=== PATIENT | male | born 1945 | race Caucasian/White ===

== ENCOUNTER → 2020-01-14 | Outpatient (CLI) | payer MEDICARE, OTHER ==
--- NOTE | 2020-01-14 11:55 | XR ---
EXAMINATION TYPE: XR KUB DATE OF EXAM: 01/14/2020 Comparison: None Clinical History: 74-year-old male N20.0 Kidney Stone Findings: 7 mm calcification left mid abdomen. 3 mm calcification right upper to mid abdomen. Nonobstructive mansi wel gas pattern. Supine imaging limited for assessment of free air. Moderate stool in the right side of the abdomen. Impression: Suspect a 7 mm nonobstructive left renal calculus and 3 mm on the right.
== END | disposition home or self-care (01) ==
LOC: RADXRMAIN 10:18
PROVIDERS: ATTEND Urology
DX: N20.0 Calculus of kidney (principal)
CPT/HCPCS: 74018

== ENCOUNTER 2022-04-14 12:49 | Observation (INO) | payer MEDICARE, OTHER ==
[2022-04-14] MEDS ORDERED: SODIUM CHLORIDE 0.9% 1,000 ML IV STA ×2 (16:07→18:45)
[2022-04-14] MEDS ORDERED: FAMOTIDINE 20 MG/2 ML VIAL IV STA (16:08)
[2022-04-14] MEDS ORDERED: diphenhydrAMINE 50 MG/ML 1 ML VIAL IVP STA (16:08)
[2022-04-14] MEDS ORDERED: methylPREDNISolone SOD SUCCI 125 MG/2 ML VIAL IV STA (16:08)
[2022-04-14 16:12] LABS: Basophils % (A) 0 %; Eosinophils # (A) 0.2 k/uL (0-0.7); Eosinophils % (A) 3 %; HCT 42.6 % (39.0-53.0); HGB 14.3 gm/dL (13.0-17.5); Lymphocytes # (A) 1.1 k/uL (1.0-4.8); Lymphocytes % (A) 20 %; MCH 31.3 pg (25.0-35.0); MCHC 33.6 g/dL (31.0-37.0); MCV 93.2 fL (80.0-100.0); Mean Platelet Volume 8.1; Monocytes # (A) 0.4 k/uL (0-1.0); Monocytes % (A) 7 %; Neutrophils # (A) 3.9 k/uL (1.3-7.7); Neutrophils % (A) 67 %; Platelet Count 194 k/uL (150-450); RBC 4.57 m/uL (4.30-5.90); RDW 12.6 % (11.5-15.5); WBC 5.8 k/uL (3.8-10.6)
--- NOTE | 2022-04-14 16:18 | ED ---
General Adult HPI - General Chief complaint: GI Bleed Stated complaint: urogenital Time Seen by Provider: 04/14/22 16:00 Source: patient, RN notes reviewed, old records reviewed Mode of arrival: ambulatory Limitations: no limitations - History of Present Illness Initial comments: Patient is a 76-year-old male with past medical history remarkable for prostate disorder, hyperlipidemia, eye disorders, who is not on blood thinners presents emergency Department with a one-day history of dark brown stools and concern for GI bleeding. He states he noticed dark red blood per rectum when using the restroom this morning at 4:30. States it was a skin the normal bowel movement. Soft stool. Noticed that the stool was coated in a darker brown color, states it was not black. States it was a dark brown/red. Denies any nausea, vomiting, hematemesis. Denies any history of GI bleeding. Does have a history of diverticulosis. Denies any chest pain, shortness of breath. Denies any weakness, lightheadedness, blurry vision. No history of GI bleeding in the past. Does endorse bilateral lower quadrant abdominal pressure and discomfort sensation. Denies any fevers, chills, or symptoms at this time. Has no urinary complaints. Presents for further evaluation at this time. - Related Data Home Medications Medication Instructions Recorded Confirmed Aspirin 81 mg PO DAILY 04/10/15 04/14/22 Terazosin [Hytrin] 5 mg PO HS 04/10/15 04/14/22 ALPRAZolam [Xanax] 0.5 mg PO HS PRN 04/14/22 04/14/22 Cabergoline 0.25 mg PO GRIMALDO 04/14/22 04/14/22 Simethicone [Gas-X] 125 mg PO QID PRN 04/14/22 04/14/22 Simvastatin [Zocor] 20 mg PO HS 04/14/22 04/14/22 Spasmaverine 60mg 60 mg PO DAILY 04/14/22 04/14/22 Timolol 0.5% Ophth Soln [Timoptic 1 drop BOTH EYES DAILY 04/14/22 04/14/22 0.5% Ophth Soln] tadalafiL [Cialis] 2.5 mg PO DAILY 04/14/22 04/14/22 Allergies Allergy/AdvReac Type Severity Reaction Status Date / Time Iodine and Iodide Containing Allergy hives, Verified 04/14/22 13:37 Produc tongue swelling Review of Systems ROS Statement: Those systems with pertinent positive or pertinent negative responses have been documented in the HPI. Review of Systems: CONST: Denies fever EYES: Denies blurry vision ENT: Denies nasal congestion C/V: Denies Chest pain RESP: Denies shortness of breath GI: Endorses abdominal discomfort. : Denies dysuria SKIN: Denies rash. MSK: Denies joint pain. NEURO: Denies headache ROS Other: All systems not noted in ROS Statement are negative. Past Medical History Past Medical History: Eye Disorder, Hyperlipidemia, Prostate Disorder Additional Past Medical History / Comment(s): occ heartburn, hiccups, hx kidney stones, glaucoma, pituitary tumor History of Any Multi-Drug Resistant Organisms: None Reported Past Surgical History: Hernia Repair, Orthopedic Surgery, Tonsillectomy Additional Past Surgical History / Comment(s): neck surgery, fx left tibia, surgery for kidney stone, vasectomy, deviated septum/polyps, umbilical hernia, lithotripsies, Past Anesthesia/Blood Transfusion Reactions: No Reported Reaction Past Psychological History: No Psychological Hx Reported Smoking Status: Never smoker Past Alcohol Use History: None Reported Past Drug Use History: None Reported - Past Family History Mother Family Medical History: No Reported History General Exam - General Exam Comments Initial Comments: General: Appears in no acute distress. HEAD: Normal with no signs of head trauma. EYES: PERRLA, EOMI, conjunctiva normal, no discharge. ENT: Hearing grossly intact, normal oropharynx. RESPIRATORY: Clear breath sounds bilaterally. No wheezes, rales, or rhonchi. C/V: Regular rate and rhythm. S1 and S2 auscultated, no edema, peripheral pulses 2+ and intact throughout ABD: Abdomen is soft, nondistended. Nontender to palpation. No guarding. No rebound tenderness. Rectal exam was performed. Dark red blood per rectum. No hemorrhoids observed. Good rectal tone. EXT: Normal range of motion, no obvious deformity SKIN: No rashes or lesions observed on exposed skin. NEURO: Alert and oriented x 4. Limitations: no limitations Course Vital Signs 04/14/22 13:33 Temperature 97.5 F L Pulse Rate 77 Respiratory 16 Rate Blood Pressure 176/78 O2 Sat by Pulse 98 Oximetry Medical Decision Making - Medical Decision Making Based on the patient's presentation and physical exam, I'm concerned for GI bleeding the patient. He does appear to have dark red blood per rectum, as on rectal exam is dark brown/red stool present. We will obtain abdominal laboratory studies, coags, lactic acid. Did recommend CT abdomen and pelvis as well as his lower abdominal discomfort. He was in agreement with this plan. He will be given 1 L fluid bolus. Vital signs within acceptable limits. Patient was in agreement this plan. Patient's laboratory studies is remarkable for hemoglobin of 14.3. Coags are within normal limits. Lactic acid is within normal limits. Occult blood is positive. CT abdomen and pelvis revealed demonstration of an active GI bleeding the proximal sigmoid colon. No diverticulitis. I spoke with Dr. Echeverria of , who agreed to evaluate the patient here for potential colonoscopy and intervention for the active GI bleed in the sigmoid colon. I discussed with the patient my desire to admit him to the hospital. They were in agreement this plan. He'll be made nothing by mouth. IV fluids are started. He'll be started on daily Protonix. He remains hemodynamically stable and asymptomatic. I spoke with the admitting physician, Dr. Christianson of [facility] who accepted the patient. Patient is admitted in stable condition. - Lab Data Result diagrams: 04/14/22 15:52 04/14/22 15:52 Lab Results 04/14/22 04/14/22 04/14/22 Range/Units 15:45 15:50 15:52 WBC 5.8 (3.8-10.6) k/uL RBC 4.57 (4.30-5.90) m/uL Hgb 14.3 (13.0-17.5) gm/dL Hct 42.6 (39.0-53.0) % MCV 93.2 (80.0-100.0) fL MCH 31.3 (25.0-35.0) pg MCHC 33.6 (31.0-37.0) g/dL RDW 12.6 (11.5-15.5) % Plt Count 194 (150-450) k/uL MPV 8.1 Neutrophils % 67 % Lymphocytes % 20 % Monocytes % 7 % Eosinophils % 3 % Basophils % 0 % Neutrophils # 3.9 (1.3-7.7) k/uL Lymphocytes # 1.1 (1.0-4.8) k/uL Monocytes # 0.4 (0-1.0) k/uL Eosinophils # 0.2 (0-0.7) k/uL Basophils # 0.0 (0-0.2) k/uL PT (9.0-12.0) sec INR (<1.2) APTT (22.0-30.0) sec Sodium (137-145) mmol/L Potassium (3.5-5.1) mmol/L Chloride (98-107) mmol/L Carbon Dioxide (22-30) mmol/L Anion Gap mmol/L BUN (9-20) mg/dL Creatinine (0.66-1.25) mg/dL Est GFR (CKD-EPI)AfAm (>60 ml/min/1.73 sqM) Est GFR (CKD-EPI)NonAf (>60 ml/min/1.73 sqM) Glucose (74-99) mg/dL Plasma Lactic Acid Narendra (0.7-2.0) mmol/L Calcium (8.4-10.2) mg/dL Total Bilirubin (0.2-1.3) mg/dL AST (17-59) U/L ALT (4-49) U/L Alkaline Phosphatase (38-126) U/L Total Protein (6.3-8.2) g/dL Albumin (3.5-5.0) g/dL Amylase (30-110) U/L Lipase (23-300) U/L Stool Occult Blood (Negative) Blood Type B Positive Blood Type Confirm B Positive Blood Type Recheck No Previous Record Bld Type Recheck Status CABO Indicated Antibody Screen NEGATIVE Spec Expiration Date 04/17/2022234904/14/22 04/14/22 04/14/22 Range/Units 15:52 15:52 16:08 WBC (3.8-10.6) k/uL RBC (4.30-5.90) m/uL Hgb (13.0-17.5) gm/dL Hct (39.0-53.0) % MCV (80.0-100.0) fL MCH (25.0-35.0) pg MCHC (31.0-37.0) g/dL RDW (11.5-15.5) % Plt Count (150-450) k/uL MPV Neutrophils % % Lymphocytes % % Monocytes % % Eosinophils % % Basophils % % Neutrophils # (1.3-7.7) k/uL Lymphocytes # (1.0-4.8) k/uL Monocytes # (0-1.0) k/uL Eosinophils # (0-0.7) k/uL Basophils # (0-0.2) k/uL PT (9.0-12.0) sec INR (<1.2) APTT 23.2 (22.0-30.0) sec Sodium 140 (137-145) mmol/L Potassium 4.4 (3.5-5.1) mmol/L Chloride 105 (98-107) mmol/L Carbon Dioxide 26 (22-30) mmol/L Anion Gap 9 mmol/L BUN 19 (9-20) mg/dL Creatinine 0.96 (0.66-1.25) mg/dL Est GFR (CKD-EPI)AfAm >90 (>60 ml/min/1.73 sqM) Est GFR (CKD-EPI)NonAf 78 (>60 ml/min/1.73 sqM) Glucose 99 (74-99) mg/dL Plasma Lactic Acid Narendra (0.7-2.0) mmol/L Calcium 9.5 (8.4-10.2) mg/dL Total Bilirubin 0.4 (0.2-1.3) mg/dL AST 22 (17-59) U/L ALT 22 (4-49) U/L Alkaline Phosphatase 63 (38-126) U/L Total Protein 6.6 (6.3-8.2) g/dL Albumin 4.5 (3.5-5.0) g/dL Amylase (30-110) U/L Lipase (23-300) U/L Stool Occult Blood Positive (Negative) Blood Type Blood Type Confirm Blood Type Recheck Bld Type Recheck Status Antibody Screen Spec Expiration Date 04/14/22 04/14/22 04/14/22 Range/Units 16:08 16:08 16:35 WBC (3.8-10.6) k/uL RBC (4.30-5.90) m/uL Hgb (13.0-17.5) gm/dL Hct (39.0-53.0) % MCV (80.0-100.0) fL MCH (25.0-35.0) pg MCHC (31.0-37.0) g/dL RDW (11.5-15.5) % Plt Count (150-450) k/uL MPV Neutrophils % % Lymphocytes % % Monocytes % % Eosinophils % % Basophils % % Neutrophils # (1.3-7.7) k/uL Lymphocytes # (1.0-4.8) k/uL Monocytes # (0-1.0) k/uL Eosinophils # (0-0.7) k/uL Basophils # (0-0.2) k/uL PT 10.9 (9.0-12.0) sec INR 1.0 (<1.2) APTT (22.0-30.0) sec Sodium (137-145) mmol/L Potassium (3.5-5.1) mmol/L Chloride (98-107) mmol/L Carbon Dioxide (22-30) mmol/L Anion Gap mmol/L BUN (9-20) mg/dL Creatinine (0.66-1.25) mg/dL Est GFR (CKD-EPI)AfAm (>60 ml/min/1.73 sqM) Est GFR (CKD-EPI)NonAf (>60 ml/min/1.73 sqM) Glucose (74-99) mg/dL Plasma Lactic Acid Narendra 0.8 (0.7-2.0) mmol/L Calcium (8.4-10.2) mg/dL Total Bilirubin (0.2-1.3) mg/dL AST (17-59) U/L ALT (4-49) U/L Alkaline Phosphatase (38-126) U/L Total Protein (6.3-8.2) g/dL Albumin (3.5-5.0) g/dL Amylase 95 (30-110) U/L Lipase 165 (23-300) U/L Stool Occult Blood (Negative) Blood Type Blood Type Confirm Blood Type Recheck Bld Type Recheck Status Antibody Screen Spec Expiration Date Disposition Clinical Impression: GI bleed Disposition: ADMITTED IP TO THIS [facility] Condition: Stable Referrals: Guru Acosta MD [Primary Care Provider] - 1-2 days Time of Disposition: 18:25
[2022-04-14 16:26] LABS: Prothrombin Time 10.9 sec (9.0-12.0)
[2022-04-14 16:34] LABS: Amylase 95 U/L (30-110); Lipase 165 U/L (23-300)
[2022-04-14 16:34] LABS: ALT 22 U/L (4-49); AST 22 U/L (17-59); African American GFR (CKD) >90 (>60 ml/min/1.73 sqM); Albumin 4.5 g/dL (3.5-5.0); Alkaline Phosphatase 63 U/L (38-126); Anion Gap 9 mmol/L; Blood Urea Nitrogen 19 mg/dL (9-20); Calcium 9.5 mg/dL (8.4-10.2); Carbon Dioxide 26 mmol/L (22-30); Chloride 105 mmol/L (98-107); Glucose 99 mg/dL (74-99); Non-African American GFR(CKD) 78 (>60 ml/min/1.73 sqM); Potassium 4.4 mmol/L (3.5-5.1); Sodium 140 mmol/L (137-145); Total Bilirubin 0.4 mg/dL (0.2-1.3); Total Protein 6.6 g/dL (6.3-8.2)
--- NOTE | 2022-04-14 17:28 | CT ---
EXAMINATION TYPE: CT angio abdomen pelvis DATE OF EXAM: 04/14/2022 COMPARISON: None HISTORY: GI bleed CT DLP: 1816.2 mGycm Automated exposure control for dose reduction was used. CONTRAST: Performed without and with IV Contrast, patient injected with 100 mL of Isovue 370. Images obtained from the diaphragm to the floor the pelvis without and with the IV contrast. There ar e delayed images also obtained. There are 3-D post processed images. Noncontrast images show 3 cm left renal cortical cyst with cortical thinning and 1 cm calculus. No hy dronephrosis. Ureters are not dilated. No retroperitoneal adenopathy. Liver and spleen are intact. The bile ducts are not dilated. Gallbladder appears normal. No pancreati c mass. The stomach is intact. Appendix is lateral and appears normal. Bladder distends smoothly. There is fat-containing small left inguinal hernia. No free fluid in the pelvis. There is some retained fecal material in the rectum. N o free air. No ascites. There are numerous large bowel diverticula. No diverticulitis. There is some distended small bowel in the upper abdomen measuring up to 3 cm. There is some contrast extravasation on the medial wall of the proximal sigmoid colon. This is seen b est on the delayed image 69. The lumbar vertebra appear intact. No compression fracture. Posterior elements are intact. There is v acuum disc at L5-S1. Lumbar vertebrae have normal alignment. The bony pelvis is intact. IMPRESSION: There is demonstration of active bleeding involving the proximal sigmoid colon. There is numerous sig moid diverticula. No diverticulitis. Normal appendix. Mild constipation.
[2022-04-14] MEDS ORDERED: PANTOPRAZOLE 40 MG/10 ML VIAL IVP STA (18:45)
[2022-04-14] MEDS ORDERED: ONDANSETRON 4 MG/2 ML VIAL IVP PRN (18:48)
[2022-04-14] MEDS ORDERED: NALOXONE 0.4 MG/ML 1 ML VIAL IV PRN (18:48)
[2022-04-14] MEDS ORDERED: SIMETHICONE 80 MG CHEWABLE PO PRN (19:15)
[2022-04-14] MEDS ORDERED: ALPRAZolam 0.5 MG TAB PO PRN (19:15)
[2022-04-14] MEDS: DOXAZOSIN 4 MG TAB PO SCH (20:12)
[2022-04-14 21:03] LABS: Basophils % (A) 0 %; Eosinophils % (A) 0 %; HCT 40.3 % (39.0-53.0); HGB 12.9 gm/dL (13.0-17.5); Lymphocytes # (A) 0.4 k/uL (1.0-4.8); Lymphocytes % (A) 6 %; MCH 29.9 pg (25.0-35.0); MCV 93.5 fL (80.0-100.0); Mean Platelet Volume 7.6; Monocytes # (A) 0.1 k/uL (0-1.0); Monocytes % (A) 1 %; Neutrophils # (A) 7.1 k/uL (1.3-7.7); Neutrophils % (A) 92 %; Platelet Count 188 k/uL (150-450); RBC 4.31 m/uL (4.30-5.90); RDW 12.2 % (11.5-15.5); WBC 7.8 k/uL (3.8-10.6)
[2022-04-14 21:19] LABS: Appearance,Urine Clear (Clear); Bilirubin,Urine Negative (Negative); Blood,Urine Negative (Negative); Color,Urine Light Yellow; Glucose,Urine (UA) Negative (Negative); Ketones,Urine Negative (Negative); Leukocyte Esterase,Urine Negative (Negative); Nitrite,Urine Negative (Negative); Protein,Urine Negative (Negative); Specific Gravity,Urine 1.039 (1.001-1.035); Urobilinogen,Urine <2.0 mg/dL (<2.0)
--- NOTE | 2022-04-15 01:50 | P.HPIM ---
History of Present Illness H&P Date: 04/14/22 The patient is a 76-year-old male with a PMH of hyperlipidemia and BPH who presents to the emergency room with complaints of black tarry stools. The patient reports that he initially noticed blood in the toilet bowl after a bowel movement at 4:30 AM this morning. He subsequently had 2 more bowel movements during the day at which were tarry black. Does report ongoing diffuse abdominal discomfort. He denied having any additional symptoms. denied expressing dizziness, fever, chills, nausea, vomiting. Reports that he is not currently taking blood thinners. No history of GI bleeding in the past. Reports that his last colonoscopy was 8 years ago which was completely unremarkable. Reports he has had 3 colonoscopies in total. Laboratory evaluation in the emergency room revealed a hemoglobin of 14.3 with fecal occult blood positive. Review of systems: Pertinent positives and negatives as discussed in HPI, a complete review of systems was performed and all other systems are negative. Physical examination: General: non toxic, no distress, appears at stated age, normal weight Derm: no unusual rashes/lesions, warm Head: atraumatic, normocephalic, symmetric Eyes: EOMI, no lid lag, anicteric sclera, pupils equal round reactive to light ENT: Nose and ears atraumatic Neck: No cervical lymphadenopathy, trachea midline, supple Mouth: no lip lesion, mucus membranes moist Cardiovascular: S1S2 reg, no murmur, positive dorsalis pedis pulse bilateral, no edema Lungs: CTA bilateral, no rhonchi, no rales, no accessory muscle use Abdominal: soft, nontender to palpation, no guarding Ext: muscle strength 5 out of 5 in all 4 extremities grossly, no gross muscle atrophy, no contractures, Neuro: CN II-XI grossly intact, no gross focal neuro deficits Psych: Alert, oriented, appropriate affect Assessment/plan Multiple melanotic stools, suspected for upper GI bleeding -GI consulted -Nothing by mouth for now -IV fluids -Protonix -Hold home ASA for now -Antiemetics Chronic conditions: Hyperlipidemia -Continue with home meds DVT prophylaxis -Heparin subcu The patient is admitted with an anticipated less than 2 midnight stay for evaluation of GIB CODE STATUS: Full Code Discussed with: Patient Anticipated discharge date: in am Anticipated discharge place: Home Past Medical History Past Medical History: Eye Disorder, Hyperlipidemia, Prostate Disorder Additional Past Medical History / Comment(s): occ heartburn, hiccups, hx kidney stones, glaucoma, pituitary tumor History of Any Multi-Drug Resistant Organisms: None Reported Past Surgical History: Hernia Repair, Orthopedic Surgery, Tonsillectomy Additional Past Surgical History / Comment(s): neck surgery, fx left tibia, surgery for kidney stone, vasectomy, deviated septum/polyps, umbilical hernia, lithotripsies, Past Anesthesia/Blood Transfusion Reactions: No Reported Reaction Past Psychological History: No Psychological Hx Reported Smoking Status: Never smoker Past Alcohol Use History: None Reported Past Drug Use History: None Reported - Past Family History Mother Family Medical History: Hypertension Medications and Allergies Home Medications Medication Instructions Recorded Confirmed Type Aspirin 81 mg PO DAILY 04/10/15 04/14/22 History Terazosin [Hytrin] 5 mg PO HS 04/10/15 04/14/22 History ALPRAZolam [Xanax] 0.5 mg PO HS PRN 04/14/22 04/14/22 History Cabergoline 0.25 mg PO GRIMALDO 04/14/22 04/14/22 History Simethicone [Gas-X] 125 mg PO QID PRN 04/14/22 04/14/22 History Simvastatin [Zocor] 20 mg PO HS 04/14/22 04/14/22 History Spasmaverine 60mg 60 mg PO DAILY 04/14/22 04/14/22 History Timolol 0.5% Ophth Soln [Timoptic 1 drop BOTH EYES DAILY 04/14/22 04/14/22 History 0.5% Ophth Soln] tadalafiL [Cialis] 2.5 mg PO DAILY 04/14/22 04/14/22 History Allergies Allergy/AdvReac Type Severity Reaction Status Date / Time Iodine and Iodide Containing Allergy hives, Verified 04/14/22 13:37 Produc tongue swelling Physical Exam Vitals: Vital Signs Temp Pulse Pulse Resp BP BP Pulse Ox 04/14/22 20:07 98.1 F 70 18 166/82 98 04/14/22 19:43 98.5 F 68 18 159/92 97 04/14/22 13:33 97.5 F L 77 16 176/78 98 Intake and Output 04/14/22 04/14/22 04/14/22 06:59 14:59 22:59 Other: Weight 73.936 kg Results CBC & Chem 7: 04/14/22 20:51 04/14/22 15:52 Labs: Abnormal Lab Results - Last 24 Hours (Table) 04/14/22 04/14/22 Range/Units 20:51 21:06 Hgb 12.9 L (13.0-17.5) gm/dL Lymphocytes # 0.4 L (1.0-4.8) k/uL Ur Specific [place] 1.039 H (1.001-1.035)
[2022-04-15 08:05] LABS: Basophils % (A) 0 %; Eosinophils % (A) 0 %; HCT 39.4 % (39.0-53.0); HGB 12.7 gm/dL (13.0-17.5); Lymphocytes # (A) 0.5 k/uL (1.0-4.8); Lymphocytes % (A) 6 %; MCH 30.1 pg (25.0-35.0); MCHC 32.2 g/dL (31.0-37.0); MCV 93.5 fL (80.0-100.0); Monocytes # (A) 0.2 k/uL (0-1.0); Monocytes % (A) 2 %; Neutrophils # (A) 7.3 k/uL (1.3-7.7); Neutrophils % (A) 91 %; Platelet Count 190 k/uL (150-450); RBC 4.22 m/uL (4.30-5.90); RDW 12.3 % (11.5-15.5)
[2022-04-15 08:19] LABS: African American GFR (CKD) >90 (>60 ml/min/1.73 sqM); Anion Gap 9 mmol/L; Blood Urea Nitrogen 21 mg/dL (9-20); Calcium 8.8 mg/dL (8.4-10.2); Carbon Dioxide 22 mmol/L (22-30); Chloride 108 mmol/L (98-107); Glucose 138 mg/dL (74-99); Non-African American GFR(CKD) 81 (>60 ml/min/1.73 sqM); Potassium 4.2 mmol/L (3.5-5.1); Sodium 139 mmol/L (137-145)
[2022-04-15] MEDS: PANTOPRAZOLE 40 MG/10 ML VIAL IVP SCH ×2 (08:35→20:27)
[2022-04-15] MEDS: TIMOLOL 0.5% OPHTH DROPS 5 ML BTL BOTH EYES SCH (08:35)
[2022-04-15] MEDS ORDERED: PANTOPRAZOLE 40 MG/10 ML VIAL IVP SCH (09:00)
[2022-04-15 11:43] LABS: Glucose,Whole Blood 105 mg/dL (70-110)
--- NOTE | 2022-04-15 11:58 | P.PN ---
Subjective Progress Note Date: 04/15/22 Principal diagnosis: GI bleed Hospital Course: 76-year-old male with history of diverticulosis, hyperlipidemia, and BPH presenting with melena. CTA abdomen and pelvis showed active bleeding involving the proximal sigmoid colon. There is numerous sigmoid diverticula. No diverticulitis. Given his symptoms with regards to melena, concern for upper GI bleed. Gastroenterology consulted. Subjective: Patient seen and examined at bedside. No acute events overnight. He denies having any bowel movement since coming to the hospital. He currently remains nothing by mouth. He denies any chest pain, shortness of breath, abdominal pain. Pertinent positives and negatives as discussed above, a complete review of systems was performed and all other systems are negative. Vitals Signs Reviewed. General: nontoxic, no distress, appears at stated age Derm: warm, dry Head: atraumatic, normocephalic, symmetric Eyes: EOMI, no lid lag, anicteric sclera Mouth: no lip lesion, mucus membranes moist Cardiovascular: S1S2 reg, no murmur Lungs: CTA bilateral, no rhonchi, no rales , no accessory muscle use Abdominal: soft, nontender to palpation, no guarding, no appreciable organomegaly Ext: no gross muscle atrophy, no edema, no contractures Neuro: CN II-XI grossly intact, no focal neuro deficits Psych: Alert, oriented, appropriate affect Assessment and Plan: Multiple melanotic stools, suspected upper GI bleeding Diverticulosis Diverticular bleed -Hemoglobin stable -Nothing by mouth -GI consult -IV fluids -Protonix twice a day -Holding aspirin -Antiemetics Chronic conditions: Dyslipidemia BPH -Continue home medications DVT ppx: Mechanical Code status: Full code Anticipated discharge place: Home Anticipated discharge time: 1 to 2 days Objective - Vital Signs Vital signs: Vital Signs Temp 98.6 F 04/15/22 08:00 Pulse 98 04/15/22 08:00 Resp 16 04/15/22 08:00 BP 160/76 04/15/22 08:00 Pulse Ox 96 04/15/22 08:00 FiO2 Intake & Output 04/14/22 04/15/22 04/15/22 18:59 06:59 18:59 Intake Total 390 Balance 390 Weight 73.936 kg 73.936 kg Intake: Intake, IV Titration 390 Amount Sodium Chloride 0.9% 1, 390 000 ml @ 130 mls/hr IV . [id number] STA Rx#:[id number] Other: Voiding Method Toilet # Voids 2 - Labs CBC & Chem 7: 04/15/22 07:39 04/15/22 07:39 Labs: Abnormal Lab Results - Last 24 Hours (Table) 04/14/22 04/14/22 04/15/22 Range/Units 20:51 21:06 07:39 RBC 4.22 L (4.30-5.90) m/uL Hgb 12.9 L 12.7 L (13.0-17.5) gm/dL Lymphocytes # 0.4 L 0.5 L (1.0-4.8) k/uL Chloride (98-107) mmol/L BUN (9-20) mg/dL Glucose (74-99) mg/dL Ur Specific [place] 1.039 H (1.001-1.035) 04/15/22 Range/Units 07:39 RBC (4.30-5.90) m/uL Hgb (13.0-17.5) gm/dL Lymphocytes # (1.0-4.8) k/uL Chloride 108 H (98-107) mmol/L BUN 21 H (9-20) mg/dL Glucose 138 H (74-99) mg/dL Ur Specific [place] (1.001-1.035)
[2022-04-15] MEDS ORDERED: PEG 3350 (236 GM/BTL) + LYTES 4,000 ML BOTTLE PO ONE (15:00)
--- NOTE | 2022-04-15 15:02 | P.CONS ---
History of Present Illness - Reason for Consult Consult date: 04/15/22 GI bleed Requesting physician: Geronimo Luo - Chief Complaint Bloody stool - History of Present Illness This 76-year-old male who presented to the emergency department with concerns for her GI bleed. Past medical history of hyperlipidemia and BPH. He states Tuesday going into Tuesday noteman he had a 3 bloody bowel movements. He states stool was black but once it hit the water it turned red. Gastroenterology was consulted for GI bleed. He denies any previous history of GI bleed. Denies any associated abdominal pain, nausea or vomiting. Denies any previous history of ulcers last colonoscopy was in [address] Echeverria which she states was normal. He denies any anticoagulation a regular NSAID use. Labs: WBC 8.0 hemoglobin 12.7 hematocrit 39 platelet count 190,000 sodium 139 potassium 4.2 BUN [address] angiogram abdominal pelvis reports distended small bowel could relate to ileus. Do not suspect mechanical obstruction. There is demonstration of active bleeding involving the proximal sigmoid colon. Numerous sigmoid diverticula. No diverticulitis. Review of Systems REVIEW OF SYSTEMS: CARDIOPULMONARY: No chest pain or shortness of breath. Gastrointestinal: No abdominal pain. No nausea or vomiting. No hematemesis, coffee-ground emesis. Melena. GENITOURINARY: No dysuria or hematuria. MUSCULOSKELETAL: Reports normal range of motion. SKIN: No rashes. No jaundice. ENDOCRINE: No chills, fevers. No excessive weight gain or loss. No polydipsia or polyuria. PSYCHIATRIC: Unremarkable. NEUROLOGY: No change in mental status. Denies dizziness, headache. ENT: Vision unremarkable. CONSTITUTIONAL: No recent weight loss. No fever, chills, night sweats. Past Medical History Past Medical History: Eye Disorder, Hyperlipidemia, Prostate Disorder Additional Past Medical History / Comment(s): occ heartburn, hiccups, hx kidney stones, glaucoma, pituitary tumor History of Any Multi-Drug Resistant Organisms: None Reported Past Surgical History: Hernia Repair, Orthopedic Surgery, Tonsillectomy Additional Past Surgical History / Comment(s): neck surgery, fx left tibia, surgery for kidney stone, vasectomy, deviated septum/polyps, umbilical hernia, lithotripsies, Past Anesthesia/Blood Transfusion Reactions: No Reported Reaction Past Psychological History: No Psychological Hx Reported Smoking Status: Never smoker Past Alcohol Use History: None Reported Past Drug Use History: None Reported - Past Family History Mother Family Medical History: Hypertension Medications and Allergies Home Medications Medication Instructions Recorded Confirmed Type Aspirin 81 mg PO DAILY 04/10/15 04/14/22 History Terazosin [Hytrin] 5 mg PO HS 04/10/15 04/14/22 History ALPRAZolam [Xanax] 0.5 mg PO HS PRN 04/14/22 04/14/22 History Cabergoline 0.25 mg PO GRIMALDO 04/14/22 04/14/22 History Simethicone [Gas-X] 125 mg PO QID PRN 04/14/22 04/14/22 History Simvastatin [Zocor] 20 mg PO HS 04/14/22 04/14/22 History Spasmaverine 60mg 60 mg PO DAILY 04/14/22 04/14/22 History Timolol 0.5% Ophth Soln [Timoptic 1 drop BOTH EYES DAILY 04/14/22 04/14/22 History 0.5% Ophth Soln] tadalafiL [Cialis] 2.5 mg PO DAILY 04/14/22 04/14/22 History Allergies Allergy/AdvReac Type Severity Reaction Status Date / Time Iodine and Iodide Containing Allergy hives, Verified 04/14/22 13:37 Produc tongue swelling Physical Exam Vitals: Vital Signs Temp Pulse Pulse Resp BP BP Pulse Ox 04/15/22 08:00 98.6 F 98 16 160/76 96 04/15/22 04:47 97.8 F 87 16 152/75 96 04/15/22 00:59 97.8 F 89 17 141/77 96 04/14/22 20:07 98.1 F 70 18 166/82 98 04/14/22 19:43 98.5 F 68 18 159/92 97 04/14/22 13:33 97.5 F L 77 16 176/78 98 Intake and Output 04/14/22 04/15/22 04/15/22 22:59 06:59 14:59 Intake Total 390 Balance 390 Intake: Intake, IV Titration 390 Amount Sodium Chloride 0.9% 1, 390 000 ml @ 130 mls/hr IV . Q7H42M STA Rx#:[id number] Other: Voiding Method Toilet # Voids 2 Weight 73.936 kg General appearance: The patient is alert, oriented, appears in no acute distress. HET: Head is normocephalic and atraumatic. Conjunctiva pink. Sclera anicteric. Neck: Supple without lymphadenopathy. Trachea midline. Heart: S1 S2. Regular rate and rhythm. Lungs: Clear to auscultation. Abdomen: Soft, nontender, nondistended with bowel sounds. No guarding or rigidity. Skin: No rashes. No jaundice. Extremities: Normal skin color and turgor. No pedal edema. Neurological: No focal deficits. Alert and oriented x3. Results CBC & Chem 7: 04/15/22 07:39 04/15/22 07:39 Labs: Abnormal Lab Results - Last 24 Hours (Table) 04/14/22 04/14/22 04/15/22 Range/Units 20:51 21:06 07:39 RBC 4.22 L (4.30-5.90) m/uL Hgb 12.9 L 12.7 L (13.0-17.5) gm/dL Lymphocytes # 0.4 L 0.5 L (1.0-4.8) k/uL Chloride (98-107) mmol/L BUN (9-20) mg/dL Glucose (74-99) mg/dL Ur Specific [place] 1.039 H (1.001-1.035) 04/15/22 Range/Units 07:39 RBC (4.30-5.90) m/uL Hgb (13.0-17.5) gm/dL Lymphocytes # (1.0-4.8) k/uL Chloride 108 H (98-107) mmol/L BUN 21 H (9-20) mg/dL Glucose 138 H (74-99) mg/dL Ur Specific [place] (1.001-1.035) Comments: CT angiogram abdomen pelvis reports distended small bowel could relate to ileus. Do not suspect mechanical obstruction. There is demonstration of active bleeding involving the proximal sigmoid colon. Numerous sigmoid diverticula. No diverticulitis. Assessment and Plan (1) GI bleed Narrative/Plan: 76-year-old presented to the emergency department with 3 episodes of black stool that turn the toilet water bright red. Patient reports 3 bloody stools yesterday and one today. No associated abdominal pain, nausea or vomiting. No previous history of GI bleed. No history of peptic ulcer disease. Denies any anticoagulation or NSAID use. Takes low-dose daily aspirin. A CT of the abdomen and pelvis showing active bleed in the proximal sigmoid colon and diverticulosis. Last colonoscopy 2013, patient reports normal. Likely were dealing with a possible diverticular bleed however patient had elevated BUN and black stool so we will proceed with upper and lower endoscopy. Current Visit: Yes Status: Acute Code(s): K92.2 - GASTROINTESTINAL HEMORRHAGE, UNSPECIFIED SNOMED Code(s): 34571893 Plan: 1. Continue symptomatic supportive care 2. Clear liquid diet 3. Daily CBC, transfuse hemoglobin less than 7 4. Nothing by mouth after midnight 5. Bowel prep this evening 6. Plan for EGD colonoscopy tomorrow. Procedure discussed with patient including risks and benefits, patient seemingly understands and agrees to proceed. Thank you for this consultation, we will continue to follow. Dr. Xavier Echeverria I agree with the dictator's note, documented as a scribe by Sonali Calhoun.
[2022-04-15 16:31] LABS: Glucose,Whole Blood 91 mg/dL (70-110)
[2022-04-15 20:23] LABS: Glucose,Whole Blood 95 mg/dL (70-110)
[2022-04-15] MEDS: ATORVASTATIN 10 MG TAB PO SCH (20:27)
[2022-04-15] MEDS: DOXAZOSIN 4 MG TAB PO SCH (20:28)
[2022-04-16 08:19] LABS: HCT 32.8 % (39.0-53.0); HGB 11.1 gm/dL (13.0-17.5); MCH 31.1 pg (25.0-35.0); MCV 91.5 fL (80.0-100.0); Mean Platelet Volume 9.5; Platelet Count 183 k/uL (150-450); RBC 3.58 m/uL (4.30-5.90); RDW 12.6 % (11.5-15.5); WBC 8.3 k/uL (3.8-10.6)
[2022-04-16] MEDS: PANTOPRAZOLE 40 MG/10 ML VIAL IVP SCH ×2 (08:48→20:02)
[2022-04-16] MEDS: TIMOLOL 0.5% OPHTH DROPS 5 ML BTL BOTH EYES SCH (08:48)
--- NOTE | 2022-04-16 10:34 | P.PN ---
Subjective Progress Note Date: 04/16/22 Principal diagnosis: GI bleed Hospital Course: 76-year-old male with history of diverticulosis, hyperlipidemia, and BPH presenting with melena. CTA abdomen and pelvis showed active bleeding involving the proximal sigmoid colon. There is numerous sigmoid diverticula. No diverticulitis. Given his symptoms with regards to melena, concern for upper GI bleed. Gastroenterology consulted. EGD and colonoscopy pending. Subjective: Patient seen and examined at bedside. No acute events overnight. He had melenonic stools x2 and some hematochezia during prep. He currently remains nothing by mouth. He denies any chest pain, shortness of breath, abdominal pain. Pertinent positives and negatives as discussed above, a complete review of systems was performed and all other systems are negative. Vitals Signs Reviewed. General: nontoxic, no distress, appears at stated age Derm: warm, dry Head: atraumatic, normocephalic, symmetric Eyes: EOMI, no lid lag, anicteric sclera Mouth: no lip lesion, mucus membranes moist Cardiovascular: S1S2 reg, no murmur Lungs: CTA bilateral, no rhonchi, no rales , no accessory muscle use Abdominal: soft, nontender to palpation, no guarding, no appreciable organomegaly Ext: no gross muscle atrophy, no edema, no contractures Neuro: CN II-XI grossly intact, no focal neuro deficits Psych: Alert, oriented, appropriate affect Assessment and Plan: Multiple melanotic stools, suspected upper GI bleeding Diverticulosis Diverticular bleed -Hemoglobin slowly downtrending -Nothing by mouth -GI consult - pending EGD and colonoscopy -IV fluids -Protonix twice a day -Holding aspirin -Antiemetics Chronic conditions: Dyslipidemia BPH -Continue home medications DVT ppx: Mechanical Code status: Full code Anticipated discharge place: Home Anticipated discharge time: 1 to 2 days Objective - Vital Signs Vital signs: Vital Signs Temp 98.2 F 04/15/22 20:00 Pulse 69 04/16/22 04:00 Resp 18 04/16/22 04:00 BP 138/75 04/16/22 04:00 Pulse Ox 96 04/16/22 04:00 FiO2 Intake & Output 04/15/22 04/16/22 04/16/22 18:59 06:59 18:59 Intake Total 0 2120 Balance 0 2120 Intake: Oral 0 2120 Other: Voiding Method Toilet Toilet # Voids 2 2 # Bowel Movements 1 4 - Labs CBC & Chem 7: 04/16/22 08:02 04/15/22 07:39 Labs: Abnormal Lab Results - Last 24 Hours (Table) 04/16/22 Range/Units 08:02 RBC 3.58 L (4.30-5.90) m/uL Hgb 11.1 L (13.0-17.5) gm/dL Hct 32.8 L (39.0-53.0) %
[2022-04-16 11:45] LABS: Glucose,Whole Blood 99 mg/dL (70-110)
[2022-04-16] MEDS ORDERED: SODIUM CHLORIDE 0.9% 500 ML 500 ML IV ONE (14:41)
[2022-04-16] MEDS ORDERED: LIDOCAINE 2% INJ 20 MG/ML (2 ML VIAL) ONE (14:49)
[2022-04-16] MEDS ORDERED: PROPOFOL 10 MG/ML 20 ML VIAL IV ONE (14:49)
--- NOTE | 2022-04-16 15:23 | P.PCN ---
Date of Procedure: 04/16/22 Procedure(s) Performed: Brief history: Patient is a pleasant 76-year-old white male scheduled for an upper endoscopy as well as colonoscopy as a part of evaluation of acute GI bleed. Patient was admitted hospital with multiple episodes of bright red blood per rectum. Initial hemoglobin was 14 and subsequently dropped to 11 g/dL. Procedure performed: Esophagogastroduodenoscopy Colonoscopy Preoperative diagnosis: Acute GI bleed Anesthesia: [facility] [place] Procedure: After informed consent was obtained from the patient was brought into the endoscopy unit and IV sedation was administered by anesthesia under continuous monitoring. Initially upper endoscopy was done. The Olympus GF 160 video endoscope was inserted inserted into the mouth and esophagus intubated without any difficulty and was gradually advanced into the stomach and duodenum and carefully examined. The bulb and second part of the duodenum appeared normal. The scope was then withdrawn into the stomach adequately insufflated with air and upon careful examination the antrum and body, cardia and fundus appeared normal. The scope was then withdrawn into the esophagus. The GE junction was located at 40 cm to the incisors. Small sliding Hiatal hernia noted. It appeared regular with no erythema erosions or ulcerations. Rest of the esophagus appeared normal. Patient tolerated the procedure well. At this time the patient continued to remain sedation. Initial digital rectal examination was normal. Olympus CF 160 video colonoscope was then inserted into the rectum and gradually advanced to the cecum without any difficulty. Careful examination was performed as the scope was gradually being withdrawn. The prep was fair. The cecum, ascending colon, transverse colon, descending colon, appeared normal. There was some old blood noted in the left colon. Moderate sigmoid diverticula seen. No active bleeding identified. Mucosa of the sigmoid colon and rectum appeared normal. Retroflexion was performed in the rectum and no lesions were noted. Patient tolerated the procedure well. Impression: 1. Upper endoscopy revealed small hiatal hernia but no active evidence of active upper GI bleed 2. Colonoscopy revealed left-sided diverticulosis with some old blood noted in the left colon but no evidence of active bleeding Recommendations: Findings of this examination were discussed with the patient. He'll be started on a full liquid diet today. Monitor CBC daily. If the hemoglobin remains stable and no further bleeding can be discharged home tomorrow.
[2022-04-16 16:43] LABS: Glucose,Whole Blood 87 mg/dL (70-110)
[2022-04-16] MEDS: DOXAZOSIN 4 MG TAB PO SCH (20:01)
[2022-04-16] MEDS: ATORVASTATIN 10 MG TAB PO SCH (20:01)
[2022-04-16 20:06] LABS: Glucose,Whole Blood 112 mg/dL (70-110)
[2022-04-17 07:09] LABS: HCT 35.9 % (39.0-53.0); HGB 11.9 gm/dL (13.0-17.5); MCH 30.4 pg (25.0-35.0); MCHC 33.3 g/dL (31.0-37.0); MCV 91.4 fL (80.0-100.0); Mean Platelet Volume 8.6; Platelet Count 192 k/uL (150-450); RBC 3.93 m/uL (4.30-5.90); RDW 12.5 % (11.5-15.5); WBC 6.2 k/uL (3.8-10.6)
[2022-04-17] MEDS: PANTOPRAZOLE 40 MG/10 ML VIAL IVP SCH (09:11)
[2022-04-17] MEDS: TIMOLOL 0.5% OPHTH DROPS 5 ML BTL BOTH EYES SCH (09:12)
[2022-04-17 10:28] VITALS: BP 148/69; PULSE 70; RESP 16; TEMP 97.8
--- NOTE | 2022-04-17 13:07 | P.DS ---
Providers Date of admission: 04/14/22 18:49 Expected date of discharge: 04/17/22 Attending physician: Katherine Christianson MD Consults: 04/14/22 18:44 Consult Physician Routine Consulting Provider: Kaley Echeverria Consult Reason/Comments: GI bleed Do you want consulting provider notified?: Already Contacted [facility] Course: Discharge Diagnosis: GI bleeding Diverticulosis Diverticular bleed Acute blood loss anemia Dyslipidemia BPH Hospital Course: 76-year-old male with a history of diverticulosis presented initially with melena concerning for upper GI bleed. CTA abdomen and pelvis revealed active bleeding involving the proximal sigmoid colon. There was also numerous sigmoid diverticula noted. GI was consulted. EGD showed small hiatal hernia but no evidence of active upper GI bleed, colonoscopy revealed left-sided diverticulosis with some old blood noted in the left colon but no evidence of active bleeding. At the time of discharge, patient's hemoglobin was stable with no symptoms of anemia. He did not have any further melena, or hematochezia. He will follow-up with PCP as outpatient, and possibly GI. Patient seen and examined at bedside. Vital signs reviewed and stable. General: nontoxic, no distress, appears at stated age Derm: warm, dry Head: atraumatic, normocephalic, symmetric Eyes: EOMI, no lid lag, anicteric sclera Mouth: no lip lesion, mucus membranes moist Cardiovascular: S1S2 reg, no murmur Lungs: CTA bilateral, no rhonchi, no rales , no accessory muscle use Abdominal: soft, nontender to palpation, no guarding, no appreciable organomegaly Ext: no gross muscle atrophy, no edema, no contractures Neuro: CN II-XI grossly intact, no focal neuro deficits Psych: Alert, oriented, appropriate affect A total of 33 minutes of time were spent preparing this complex discharge summary. Patient was discharged on 04/17/22 at 9:34. Patient Condition at Discharge: Stable Plan - Discharge Summary Discharge Rx Participant: Yes New Discharge Prescriptions: Continue Aspirin 81 mg PO DAILY Terazosin [Hytrin] 5 mg PO HS ALPRAZolam [Xanax] 0.5 mg PO HS PRN PRN Reason: Anxiety Timolol 0.5% Ophth Soln [Timoptic 0.5% Ophth Soln] 1 drop BOTH EYES DAILY Simvastatin [Zocor] 20 mg PO HS Cabergoline 0.25 mg PO GRIMALDO Spasmaverine 60mg 60 mg PO DAILY tadalafiL [Cialis] 2.5 mg PO DAILY Simethicone [Gas-X] 125 mg PO QID PRN PRN Reason: gas Discharge Medication List Aspirin 81 mg PO DAILY 04/10/15 [History] Terazosin [Hytrin] 5 mg PO HS 04/10/15 [History] ALPRAZolam [Xanax] 0.5 mg PO HS PRN 04/14/22 [History] Cabergoline 0.25 mg PO GRIMALDO 04/14/22 [History] Simethicone [Gas-X] 125 mg PO QID PRN 04/14/22 [History] Simvastatin [Zocor] 20 mg PO HS 04/14/22 [History] Spasmaverine 60mg 60 mg PO DAILY 04/14/22 [History] Timolol 0.5% Ophth Soln [Timoptic 0.5% Ophth Soln] 1 drop BOTH EYES DAILY 04/14/22 [History] tadalafiL [Cialis] 2.5 mg PO DAILY 04/14/22 [History] Follow up Appointment(s)/Referral(s): Guru Acosta MD [Primary Care Provider] - 1-2 days (pleae call office on Tuesday to make follow up appointment) Patient Instructions/Handouts: Gastrointestinal Bleeding (GEN), Diverticulosis Diet (GEN) Activity/Diet/Wound Care/Special Instructions: Follow up with PCP in 1-2 weeks. Discharge Disposition: HOME SELF-CARE
[2022-04-18] MEDS ORDERED: NON FORMULARY DRUG (Cabergoline [Cabergoline] 0.5 MG Tablet) PO SCH (19:15)
== END 2022-04-17 12:37 | disposition home or self-care (01) ==
LOC: EC 12:49 → 3SCARD 18:49
PROVIDERS: ADMIT Internal Medicine; ATTEND Internal Medicine
DX: K57.31 Diverticulosis of large intestine without perforation or abscess with bleeding (principal); K44.9 Diaphragmatic hernia without obstruction or gangrene; D62 Acute posthemorrhagic anemia; E78.5 Hyperlipidemia, unspecified; N40.0 Benign prostatic hyperplasia without lower urinary tract symptoms; Z87.442 Personal history of urinary calculi; Z79.82 Long term (current) use of aspirin; Z79.899 Other long term (current) drug therapy
CPT/HCPCS: 96361 ×2; 96375 ×3; 96376 ×3; 96374; 99285; 36415; 86900; 86901; 80053; 80048; 82150; 83605; 83690; 85025 ×2; 85027 ×2; 85610; 85730; 86850; 82272; 81003; 74174; 45378; 43235; G0378 ×4; J1200; J2930; J2405; J2704; C9113 ×4; Q9967; J2001